=== PATIENT | male | born 2000 | race Two or more races ===

== ENCOUNTER 2023-03-11 10:18 | Emergency (ER) | payer OTHER ==
[~2023-03-11] VITALS: Ht 175.3 cm; Wt 126.0 kg
[2023-03-11] MEDS ORDERED: ACETAMINOPHEN 500 MG TAB PO ONE (10:45)
[2023-03-11] MEDS ORDERED: ONDANSETRON ODT 4 MG TAB PO ONE (12:00)
[2023-03-11 12:05] VITALS: BP 127/89; PULSE 122; RESP 18; TEMP 100; O2SAT 94
[2023-03-11 14:21] LABS: COVID19 ANTIGEN SOFIA FIA NEGATIVE (NEGATIVE)
[2023-03-11 14:27] LABS: Rapid Influenza A Negative (Negative)
[2023-03-11 14:29] LABS: Rapid Influenza B Positive (Negative)
[2023-03-11] MEDS ORDERED: OSEL75CA5 PO (14:36)
[2023-03-11] MEDS ORDERED: ZOFR4T PO (14:36)
[2023-03-11] MEDS ORDERED: BENZ100C97 PO (14:36)
== END 2023-03-11 14:59 | disposition home or self-care (01) ==
LOC: ER 10:18
DX: J10.1 Influenza due to other identified influenza virus with other respiratory manifestations (principal); B34.9 Viral infection, unspecified; Z79.899 Other long term (current) drug therapy; Z20.822 Contact with and (suspected) exposure to COVID-19
CPT/HCPCS: 36415; 71045; 87426; 87804; 99284; Q0162